=== PATIENT | female | born 1955 | race Caucasian/White ===

== ENCOUNTER 2017-01-30 09:26 | Emergency (ER) | payer BC, OTHER ==
[~2017-01-30] VITALS: Ht 162.6 cm; Wt 68.0 kg
--- NOTE | 2017-01-30 09:41 | NUR ---
Dr Sharp at the bedside for eval and exam.
[2017-01-30] MEDS ORDERED: IBUPROFEN 600 MG TABLET PO ONE (09:45)
--- NOTE | 2017-01-30 09:50 | NUR ---
[facility] at the bedside for report.
[2017-01-30] MEDS ORDERED: IBUPROFEN 600 MG TABLET ONE (10:01)
--- NOTE | 2017-01-30 10:17 | NUR ---
Pt left ER for ct.
--- NOTE | 2017-01-30 12:45 | NUR ---
Patient discharged to home in stable conditon. Written and verbal after care instructions given. Patient verbalizes understanding of instructions.
[2017-01-30 12:46] VITALS: BP 120/64
== END 2017-01-30 12:47 | disposition home or self-care (01) ==
LOC: ER 09:26
DX: S13.4XXA Sprain of ligaments of cervical spine, initial encounter (principal); S33.5XXA Sprain of ligaments of lumbar spine, initial encounter; Z88.6 Allergy status to analgesic agent; V49.9XXA Car occupant (driver) (passenger) injured in unspecified traffic accident, initial encounter; Y93.89 Activity, other specified; Y92.89 Other specified places as the place of occurrence of the external cause; Y99.8 Other external cause status
CPT/HCPCS: 70450; 72040; 99284; A4663

== ENCOUNTER 2019-04-16 21:26 | Emergency (ER) | payer OTHER, MEDICARE ==
[~2019-04-16] VITALS: Ht 165.1 cm; Wt 70.8 kg
[2019-04-16] MEDS ORDERED: METHOCARBAMOL 500 MG TABLET ONE (21:56)
[2019-04-16] MEDS: METHOCARBAMOL 500 MG TABLET PO ONE (22:13)
--- NOTE | 2019-04-16 22:51 | NUR ---
Patient discharged to home in stable conditon. Written and verbal after care instructions given. Patient verbalizes understanding of instructions. Patient ambulated with stable gait.
[2019-04-16 22:54] VITALS: BP 110/76
== END 2019-04-16 22:55 | disposition home or self-care (01) ==
LOC: ER 21:26
DX: S33.5XXA Sprain of ligaments of lumbar spine, initial encounter (principal); Z88.5 Allergy status to narcotic agent; V43.52XA Car driver injured in collision with other type car in traffic accident, initial encounter; Y93.89 Activity, other specified; Y92.89 Other specified places as the place of occurrence of the external cause; Y99.8 Other external cause status
CPT/HCPCS: 72072; 72100; A4663

== ENCOUNTER 2021-04-07 12:16 | Emergency (ER) | payer MEDICARE, OTHER ==
[~2021-04-07] VITALS: Ht 162.6 cm; Wt 70.3 kg
[2021-04-07 12:34] LABS: *BILIRUBIN,URIN NEGATIVE (NEGATIVE); *BLOOD, URINE 1+ (NEGATIVE); *CLARITY,URINE CLEAR (CLEAR); *COLOR,URINE YELLOW (YELLOW); *KETONES,URINE NEGATIVE (NEGATIVE); *UROBILINOGEN,URINE 0.2 E.U./dl (NORMAL); LEUKOCYTE ESTERASE ,URINE NEGATIVE (NEGATIVE); NITRITE, URINE NEGATIVE (NEGATIVE); PH,URINE 5.5 (5.0-8.0); UGLUCOSE NEGATIVE (NEGATIVE)
[2021-04-07 12:38] LABS: WBC,URINE 0-3 /HPF (0-3)
[2021-04-07] MEDS ORDERED: ONDANSETRON 4 MG/2 ML VIAL IV ONE (12:45)
[2021-04-07] MEDS ORDERED: MORPHINE SULFATE 4 MG/1 ML DISP.SYRIN IV ONE (12:45)
[2021-04-07] MEDS ORDERED: IV NS 1000 ML 1,000 ML IV ONE (12:45)
[2021-04-07 12:48] LABS: HEMATOCRIT 39.5 % (31.2-41.9); MEAN CORPUSCULAR HEMOGLOBIN 29.9 uug (24.7-32.8); MEAN CORPUSCULAR VOLUME 87.1 fL (75.5-95.3); PLATELET COUNT (AUTO) 276 K/uL (179-408)
[2021-04-07 12:52] LABS: CREATININE 0.6 mg/dL (0.6-1.3); POTASSIUM 3.8 mmol/L (3.5-5.1)
[2021-04-07 12:57] LABS: BILIRUBIN,DIRECT 0.1 mg/dL (0.0-0.2); BILIRUBIN,TOTAL 0.4 mg/dL (0.2-1.0); TOTAL PROTEIN, SERUM 7.8 g/dL (6.4-8.2)
[2021-04-07] MEDS ORDERED: ONDANSETRON 4 MG/2 ML VIAL ONE (13:39)
[2021-04-07] MEDS ORDERED: MORPHINE SULFATE 4 MG/1 ML DISP.SYRIN ONE (13:39)
[2021-04-07] MEDS ORDERED: IBUP-1955 PO (14:35)
[2021-04-07] MEDS ORDERED: AMOX-430 PO (14:35)
[2021-04-07] MEDS ORDERED: AMOXICILLIN-CLAVUL 875-125MG TABLET PO ONE (14:45)
[2021-04-07] MEDS ORDERED: AMOXICILLIN-CLAVUL 875-125MG TABLET ONE (14:46)
== END 2021-04-07 15:02 | disposition home or self-care (01) ==
LOC: ER 12:16
DX: K57.32 Diverticulitis of large intestine without perforation or abscess without bleeding (principal); R00.0 Tachycardia, unspecified; Z88.5 Allergy status to narcotic agent
CPT/HCPCS: 36415; 74176; 80048; 80076; 81001; 83605; 83690; 84484; 85025; 93005; 96361; 96374; 96375; 99285; J2270; J2405; 70030-TC; A4663; J7030